=== PATIENT | male | born 1980 | race Caucasian/White ===

== ENCOUNTER 2018-12-10 15:52 | Emergency (ER) | payer OTHER ==
--- NOTE | 2018-12-10 16:05 | ER Report ---
History and Physical Time Seen By MD: 16:05 Hx. of Stated Complaint: ALCOHOL HPI/ROS CHIEF COMPLAINT:Alf clearance HISTORY OF PRESENT ILLNESS: PT here for [facility] clearance. Pt is answering questions and soft spoken. Pt tells me he does not know why he is here or arrested. Pt denies any pain. Pt does state that he is diabetic and is on oral medication. Pt is taking his medication but does not check his blood sugar. Pt denies any trauma REVIEW OF SYSTEMS: Constitutional: No fever, no chills. Eyes: No discharge. ENT: No sore throat. Cardiovascular: No chest pain, no palpitations. Respiratory: No cough, no shortness of breath. Gastrointestinal: No abdominal pain, no vomiting. Genitourinary: No hematuria. Musculoskeletal: No back pain. Skin: No rashes. Neurological: No headache. Allergies: Coded Allergies: No Known Drug Allergies (Unverified , 12/10/18) Past Medical/Surgical History Pmhx: DM Hx Smoking: No Hx Alcohol Use: Yes Constitutional Vital Sign - Last 24 Hours 12/10/18 12/10/18 15:54 16:28 Temp 97.8 Pulse 131 Resp 20 B/P (MAP) 145/103 126/106 (113) Pulse Ox 90 O2 Delivery Room Air Physical Exam General Appearance: The patient is alert, has no immediate need for airway protection and no signs of toxicity. Eyes: Pupils equal and round no pallor or injection, EOMI ENT: no pharyngeal erythema or exudates, Mucous membranes are moist Respiratory: There are no retractions, lungs are clear to auscultation. Cardiovascular: Regular rate and rhythm. pulses are equal and symmetrical Gastrointestinal: Abdomen is soft and non tender, no masses, bowel sounds normal, no guarding, no rigidity or rebound Neurological: Cranial nerves II-XII grossly intact, no sensory or motor loss Skin: Warm and dry, no rashes. Musculoskeletal: Neck is supple non tender, no vertebral tenderness Extremities are nontender, non swollen and have full range of motion. DIFFERENTIAL DIAGNOSIS: After history and physical exam differential diagnosis was considered for intoxication, hyperglycemia. Medical Decision Making ED Course/Re-evaluation ED Course Check his blood glucose. 12/10/2018 4:20:45 pm bedside glucose is 132 Pts vital signs are abnormal however pt is anxious about going to [facility]. Pt denies any pain or trauma. Pts physical exam is stable. Will recheck vitals but suspect that they will continue to be elevated. 12/10/2018 4:29:47 pm vitals are still irregular. Pt states he took his bp medication this am. Pt is currently in shackles and hand cuffs so I suspect pt vitals may be situational. Pt denies any headaches, cp or sob. Recommend recheck vitals when out of [facility] this week. Decision to Disposition Date: Dec 10, 2018 Decision to Disposition Time: 16:20 Depart Departure Latest Vital Signs Vital Signs Date Time Temp Pulse Resp B/P (MAP) Pulse Ox O2 Delivery O2 Flow Rate FiO2 12/10/18 16:28 126/106 (113) 12/10/18 15:54 97.8 131 20 90 Room Air Impression: Primary Impression: Medical clearance for incarceration Additional Impressions: Diabetes Hypertension Condition: Condition Unchanged Disposition: [facility] Patient Instructions: GENERAL ER DISCHARGE INSTRUCTIONS Additional Instructions: Your blood sugar today was stable at 132. Your blood pressure was elevated in the emergency department. Recommend having your vitals rechecked later this week or next. Continue your current medications. Please return to emergency department or your family doctor if you have any concerns. Problem Qualifiers Additional Impressions: Diabetes Diabetes mellitus type: type 2 Diabetes mellitus roasterman insulin use: without nursing home use Diabetes mellitus complication status: without complication Qualified Codes: E11.9 - Type 2 diabetes mellitus without complications Hypertension Hypertension type: essential hypertension Qualified Codes: I10 - Essential (primary) hypertension WASHINGTON DOBSON DO Dec 10, 2018 16:05
[2018-12-10 16:28] VITALS: BP 126/106
== END 2018-12-10 16:34 ==
LOC: ER 16:06
DX: E11.9 Type 2 diabetes mellitus without complications (principal); I10 Essential (primary) hypertension
CPT/HCPCS: 36416; 82948; 99282